=== PATIENT | female | born 1980 ===

== ENCOUNTER 2017-01-03 17:38 | Emergency (ER) | payer OTHER ==
[2017-01-03 17:38] VITALS: BMI 29.2
--- NOTE | 2017-01-03 19:19 | C.PDOC ---
History Of Present Illness 36F c/o fever, body ached, headache since yesterday. has not taken any meds at home. denies any pmh. no recent travel. Time Seen by Provider: 01/03/17 18:57 Chief Complaint (Nursing): Flu-like Symptoms Past Medical History Vital Signs: Last Vital Signs Temp 98.2 F 01/03/17 23:46 Pulse 92 H 01/03/17 23:46 Resp 16 01/03/17 23:46 BP 98/61 L 01/03/17 23:46 Pulse Ox 98 01/03/17 23:46 - [facility] Procedures DELIVERY OF PRODUCTS OF CONCEPTION, EXTERNAL APPROACH (11/13/15) DIVISION OF FEMALE PERINEUM, EXTERNAL APPROACH (11/13/15) Family History: States: Other Other Family History: nc - Social History Hx Tobacco Use: No Hx Alcohol Use: No Hx Substance Use: No - Immunization History Hx Tetanus Toxoid Vaccination: No Hx Influenza Vaccination: No Hx Pneumococcal Vaccination: No Review Of Systems Constitutional: Positive for: Fever, Chills, Malaise Cardiovascular: Negative for: Chest Pain Respiratory: Negative for: Cough, Shortness of Breath Gastrointestinal: Negative for: Nausea, Vomiting, Abdominal Pain, Diarrhea Genitourinary: Negative for: Dysuria Neurological: Positive for: Headache. Negative for: Weakness, Numbness Physical Exam - Physical Exam Appears: Non-toxic, No Acute Distress Skin: Warm, Dry Head: Atraumatic Eye(s): bilateral: PERRL, EOMI Nose: No Epistaxis Oral Mucosa: Moist Neck: Normal ROM, Supple Cardiovascular: Rhythm Regular Respiratory: No Decreased Breath Sounds, No Accessory Muscle Use, No Rales, No Rhonchi, No Wheezing Gastrointestinal/Abdominal: Soft, No Tenderness Neurological/Psych: Oriented x3, Normal Motor, Normal Sensation, Other (no focal deficits) ED Course And Treatment - Laboratory Results Result Diagrams: 01/03/17 19:56 01/03/17 20:00 O2 Sat by Pulse Oximetry: 100 Medical Decision Making Medical Decision Making: the pt improved w rx. she appears well, non-toxic, no distress. disc results, plan for rx, rtr. pt v/u all questions and concerns addressed at this time. Disposition - Disposition Referrals: [facility] [Outside] Disposition: HOME/ ROUTINE Disposition Time: 23:45 Condition: IMPROVED Additional Instructions: Please follow up with your doctor. Return to the ER for any worsening symptoms or for any other concerns. Prescriptions: Cephalexin [Keflex] 500 mg PO BID #20 capsule Instructions: Urinary Tract Infection in Women (ED) Forms: Gen Discharge Inst Georgian, [facility] (Nicaraguan) Print Language: SWISS - Clinical Impression Clinical Impression: UTI (urinary tract infection)
[2017-01-03] MEDS ORDERED: Sodium Chloride 0.9% 1,000 ML IV ONE ×2 (19:20→20:45)
[2017-01-03 19:22] VITALS: RESP 16
[2017-01-03 19:51] LABS: BASO # 0.1 K/uL (0.0-0.2); BASO % 0.6 % (0.0-2.0); EOS % 0.1 % (0.0-4.0); HEMATOCRIT 34.8 % (34.0-47.0); LYMPH # 1.8 K/uL (1.0-4.3); LYMPH % 17.4 % (20.0-40.0); MEAN CELL VOLUME 79.4 fL (81.0-99.0); MEAN CORPUSCULAR HEMOGLOBIN 26.3 pg (27.0-31.0); MEAN CORPUSCULAR HGB CONC 33.2 g/dL (33.0-37.0); MEAN PLATELET VOLUME 8.1 fL (7.2-11.7); MONO # 1.1 K/uL (0.0-0.8); MONO % 10.3 % (0.0-10.0); RED CELL DISTRIBUTION WIDTH 13.8 % (11.5-14.5); WHITE BLOOD COUNT 10.5 K/uL (4.8-10.8)
[2017-01-03 20:00] LABS: CHLORIDE 101 mmol/L (98-107); SODIUM 139 mmol/L (132-148)
[2017-01-03 20:02] LABS: BILIRUBIN,TOTAL 0.8 mg/dL (0.2-1.3); GFR AFRICAN-AMERICAN > 60
[2017-01-03 20:03] LABS: ALB/GLOB RATIO 1.2 (1.0-2.1); ALKALINE PHOSPHATASE 70 U/L (38-126); ALT/SGPT 31 U/L (9-52); AST/SGOT 31 U/L (14-36); BLOOD UREA NITROGEN 9 mg/dL (7-17); CARBON DIOXIDE 27 mmol/L (22-30); GLUCOSE,RANDOM 85 mg/dL (65-105); TOTAL PROTEIN 7.9 g/dL (6.3-8.3)
[2017-01-03 20:07] LABS: POTASSIUM 4.3 mmol/L (3.6-5.2)
[2017-01-03 20:11] LABS: RBC URINE 24 /hpf (0-3); URINE BACTERIA FEW (<OCC); URINE BILIRUBIN NEGATIVE (NEGATIVE); URINE BLOOD 1+ (NEGATIVE); URINE COLOR Amber (YELLOW); URINE GLUCOSE (UA) NORMAL (Normal); URINE KETONE NEGATIVE (NEGATIVE); URINE LEUKOCYTE ESTERASE 2+ Leu/uL (Negative); URINE PROTEIN 1+ mg/dL (NEGATIVE); URINE UROBILINOGEN NORMAL mg/dL (0.2-1.0); WBC CLUMPS MOD /hpf; WBC URINE 332 /hpf (0-5)
[2017-01-03] MEDS ORDERED: cefTRIAXone IV 1 gm in Dextros 50 ML IVPB ONE (21:55)
[2017-01-03 23:47] VITALS: BP 98/61; PULSE 92; TEMP 98.2
[2017-01-04] VITALS: O2SAT 100
--- NOTE | 2017-01-04 07:26 | RAD ---
HISTORY: fever COMPARISON: Chest radiographs 10/31/2016. TECHNIQUE: Chest PA and lateral FINDINGS: LUNGS: Interval linear atelectasis or fibrosis in the inferior left lung zone with remaining lung prasad clear otherwise. PLEURA: No significant pleural effusion identified. No pneumothorax apparent. CARDIOVASCULAR: Normal. OSSEOUS STRUCTURES: No significant abnormalities. VISUALIZED UPPER ABDOMEN: Normal. OTHER FINDINGS: None. IMPRESSION: No acute infiltrate or pleural effusion identified bilaterally in the cardiomediastinal silhouette appears normal once again. Interval limited linear atelectasis or fibrosis in the left base laterally.
== END 2017-01-03 23:51 | disposition home or self-care (01) ==
LOC: C.ER 17:38
DX: N39.0 Urinary tract infection, site not specified (principal)
CPT/HCPCS: 71020; 80053; 81001; 84703; 85025; 87040; 87086; 87804; 96361; 96365; 99284; J0696; J7040

== ENCOUNTER 2018-04-17 14:04 | Emergency (ER) | payer OTHER ==
[2018-04-17 14:04] VITALS: BMI 29.2
[2018-04-17] MEDS ORDERED: DiphenhydrAMINE 50 mg/ml Inj IVP STA (14:54)
[2018-04-17] MEDS ORDERED: Sodium Chloride 0.9% 1,000 ML IV STA (14:55)
[2018-04-17] MEDS ORDERED: DiphenhydrAMINE 50 mg/ml Inj ONE (15:10)
[2018-04-17] MEDS ORDERED: Sodium Chloride 0.9% 1,000 ML ONE (15:11)
--- NOTE | 2018-04-17 17:12 | C.PDOC ---
History Of Present Illness 38 y/o female presents to the ER complaining of generalized pruritic rash which began today. Patient states that she does not recall eating new foods and/or using new skin products.Denies having trouble breathing, trouble swallowing, CP, SOB, fever, and chills. Time Seen by Provider: 04/17/18 14:14 Chief Complaint (Nursing): Abnormal Skin Integrity History Per: Patient History/Exam Limitations: no limitations Onset/Duration Of Symptoms: Hrs Current Symptoms Are (Timing): Still Present Severity: Moderate Past Medical History Reviewed: Historical Data, Nursing Documentation, Vital Signs Vital Signs: Last Vital Signs Temp 97.2 F L 04/17/18 14:10 Pulse 105 H 04/17/18 14:10 Resp 20 04/17/18 14:10 BP 125/80 04/17/18 14:10 Pulse Ox 97 04/17/18 14:10 - Medical History PMH: No Chronic Diseases Surgical History: No Surg Hx - [facility] Procedures DELIVERY OF PRODUCTS OF CONCEPTION, EXTERNAL APPROACH (11/13/15) DIVISION OF FEMALE PERINEUM, EXTERNAL APPROACH (11/13/15) Family History: States: No Known Family Hx - Social History Hx Tobacco Use: No Hx Alcohol Use: No Hx Substance Use: No - Immunization History Hx Tetanus Toxoid Vaccination: No Hx Influenza Vaccination: No Hx Pneumococcal Vaccination: No Review Of Systems Except As Marked, All Systems Reviewed And Found Negative. Constitutional: Negative for: Fever, Chills Cardiovascular: Negative for: Chest Pain Respiratory: Negative for: Shortness of Breath Skin: Positive for: Rash Physical Exam - Physical Exam Appears: Non-toxic, No Acute Distress Skin: Warm, Dry, Rash (generalized urticaria) Head: Atraumatic, Normacephalic Eye(s): bilateral: Normal Inspection Nose: Normal Oral Mucosa: Moist Tongue: Normal Appearing, No Swelling, No Lesions Lips: Normal Appearing, No Swelling, No Lesions Throat: Normal, No Erythema, No Exudate Neck: Supple Chest: Symmetrical Cardiovascular: Rhythm Regular Respiratory: Normal Breath Sounds, No Rales, No Rhonchi, No Wheezing Neurological/Psych: Oriented x3, Normal Speech ED Course And Treatment O2 Sat by Pulse Oximetry: 97 (RA) Pulse Ox Interpretation: Normal Progress Note: Patient treated with Benadryl IV, Pepcid IV, Solu-Medrol IV, and IV Fluids. Disposition - Disposition Disposition: HOME/ ROUTINE Disposition Time: 17:09 Condition: STABLE Additional Instructions: Follow up with PMD within 1-2 days. Return to ED if feel worse. Prescriptions: DiphenhydrAMINE [Benadryl] 25 mg PO .Q4-6 H #30 cap Famotidine [Pepcid] 20 mg PO BID #20 tab predniSONE [predniSONE Tab] 2 tab PO DAILY #8 tab Instructions: Hives (DC) Forms: [employer] (Hungarian) - Clinical Impression Clinical Impression: Urticaria - PA / CONFIGURATOR / Resident Statement MD/DO has reviewed & agrees with the documentation as recorded. - Scribe Statement The provider has reviewed the documentation as recorded by the Deb Singh Provider Attestation All medical record entries made by the Deb were at my direction and personally dictated by me. I have reviewed the chart and agree that the record accurately reflects my personal performance of the history, physical exam, medical decision making, and the department course for this patient. I have also personally directed, reviewed, and agree with the discharge instructions and disposition.
[2018-04-17 17:38] VITALS: BP 99/66; PULSE 87; RESP 18; TEMP 98.5
[2018-04-17 18:03] VITALS: O2SAT 97
== END 2018-04-17 17:45 | disposition home or self-care (01) ==
LOC: C.ER 14:04
DX: L50.9 Urticaria, unspecified (principal)
CPT/HCPCS: 96361; 96374; 96375; 99283; J1200; J2930; J7030